=== PATIENT | male | born 1985 | race Hispanic/Latino ===

== ENCOUNTER 2023-05-08 04:42 | Emergency (ER) | payer OTHER ==
[2023-05-08] MEDS ORDERED: Lidocaine 2% Viscous Solution 10 ML, Aluminum & Magnesium Hydroxide 30 ML SSW SCH (05:15)
[2023-05-08] MEDS ORDERED: Ondansetron PF 4 MG/2 ML Vial ONE (05:19)
[2023-05-08] MEDS ORDERED: Pantoprazole 40 MG VIAL ONE (05:19)
[2023-05-08 07:02] LABS: #Monocytes 0.2 thou/uL (0.11-0.59); %Basophils 0.2 % (0.0-1.0); %Eosinophils 0.2 % (0.0-10.0); %Lymphocytes 17.3 % (21.0-51.0); %Monocytes 4.1 % (0.0-10.0); Hematocrit 39.6 % (42.0-52.0); Hemoglobin 13.4 g/dL (14.0-18.0); Mean Corpuscular HGB CONC 33.8 g/dL (32.0-36.0); Mean Corpuscular Hemoglobin 27.3 pg (27.0-31.0); Mean Corpuscular Volume 80.7 fl (78.0-98.0); Platelet Count 175 10x3/uL (130-400); RBC Distribution Width 12.5 % (11.5-14.5); Red Blood Cell (RBC) Count 4.91 mill/uL (4.70-6.10); White Blood Cell (WBC) Count 5.1 10x3/uL (4.8-10.8)
[2023-05-08 07:15] LABS: ALT (SGPT) 54 U/L (8-55); AST (SGOT) 70 U/L (5-34); Albumin 3.9 g/dL (3.5-5.0); Alkaline Phosphatase 93 U/L (40-110); Anion Gap 10 mmol/L (10-20); BUN (Urea Nitrogen) 9 mg/dL (8.9-20.6); Bilirubin, Total 0.5 mg/dL (0.2-1.2); Calc. Creatinine Clearance 0 mL/min (70-130); Calcium 8.3 mg/dL (7.8-10.44); Carbon Dioxide 27 mmol/L (22-29); Chloride 104 mmol/L (98-107); Estimated GFR 112; Globulin 2.6 g/dL (2.4-3.5); Glucose 142 mg/dL (70-105); Lipase 70 U/L (8-78); Magnesium 1.9 mg/dL (1.6-2.6); Potassium 3.6 mmol/L (3.5-5.1); Protein, Total 6.5 g/dL (6.0-8.3); Sodium 137 mmol/L (136-145)
[2023-05-08 07:20] LABS: Troponin I Less than 0.010 ng/mL (< 0.028)
== END 2023-05-08 09:18 ==
LOC: ERS 04:42 → EEVIPCON 04:42 → ERS 09:18
DX: K76.0 Fatty (change of) liver, not elsewhere classified (principal)
CPT/HCPCS: 71045; 76705; 80053; 83605; 83690; 83735; 83880; 84484; 85025; 93005; 96374; 96375; C9113; J2405